=== PATIENT | male | born 1950 | race Asian ===

== ENCOUNTER 2024-07-14 13:28 | Inpatient (IN) | payer OTHER ==
[~2024-07-14] VITALS: Ht 165.1 cm; Wt 62.3 kg
[2024-07-14] MEDS: AZITHROMYCIN 500 MG in NS 250 ML IV SCH (00:50)
[2024-07-14 13:38] VITALS: BP_SYST 143; PULSE 95; RESP 18; TEMP 99.2; O2SAT 92
[2024-07-14] MEDS: NACL 0.9% 1,000 ML IV ONE (14:40)
[2024-07-14] MEDS ORDERED: [UNRECOGNIZED DRUG - CODE] PO (14:57)
[2024-07-14] MEDS ORDERED: ATOR20TA64 PO (14:57)
[2024-07-14] MEDS ORDERED: RISP-31 PO (14:57)
[2024-07-14] MEDS ORDERED: MIRT-91 PO (14:57)
[2024-07-14] MEDS ORDERED: DOCU-156 PO (14:57)
[2024-07-14] MEDS ORDERED: MIDO5TAB4 PO (14:57)
[2024-07-14 15:08] LABS: BASOPHILS % (AUTO) 0.3 % (0.0-2.0); EOSINOPHILS % (AUTO) 0.3 % (0.0-4.0); HEMATOCRIT 44.2 % (36-54); HEMOGLOBIN 14.3 g/dL (14.0-18.0); LYMPHOCYTES # (AUTO) 1.4 K/uL (1.0-5.5); LYMPHOCYTES % (AUTO) 11.4 % (20.5-51.5); MEAN CORPUSCULAR HEMOGLOBIN 29 pg (27-31); MEAN CORPUSCULAR HGB CONC 32 % (32-36); MEAN CORPUSCULAR VOLUME 90 fL (79.0-98.0); MONOCYTES # (AUTO) 0.8 K/uL (0.0-1.0); MONOCYTES % (AUTO) 6.1 % (1.7-9.3); NEUTROPHILS # (AUTO) 10.2 K/uL (1.8-7.7); NEUTROPHILS % (AUTO) 81.9 % (40.0-70.0); PLATELET COUNT (AUTO) 318 K/uL (130-430); RED CELL DISTRIBUTION WIDTH 13.8 % (9.0-15.0); WHITE BLOOD COUNT (AUTO) 12.5 K/uL (4.8-10.8)
[2024-07-14] MEDS: PIPERACILLIN/TAZO 3.375 GM in NS 50 ML IV ONE (15:15)
[2024-07-14 16:03] LABS: ALANINE AMINOTRANSFERASE 13 U/L (12-78); ALBUMIN 2.9 g/dL (3.4-4.8); ANION GAP 14 (5-15); ASPARTATE AMINOTRANSFERASE 14 U/L (10-37); BILIRUBIN,DIRECT 0.4 mg/dL (0.0-0.3); CALCIUM 9.6 mg/dL (8.4-11.0); CARBON DIOXIDE 23 mmol/L (23-29); CHLORIDE 111 mmol/L (98-107); CREATININE 0.83 mg/dL (0.55-1.30); GLUCOSE 112 mg/dL (74-106); POTASSIUM 3.5 mmol/L (3.5-5.1); SODIUM SERUM 148 mmol/L (136-145); TOTAL BILIRUBIN 1.6 mg/dL (0.0-1.0); TOTAL PROTEIN, SERUM 7.8 g/dL (6.4-8.3); UREA NITROGEN, BLOOD 28 mg/dL (8-21)
[2024-07-14 16:14] LABS: BILIRUBIN,URINE 1+ (NEGATIVE); BLOOD, URINE 2+ (NEGATIVE); CLARITY/URINE CLEAR (CLEAR); COLOR,URINE YELLOW (YELLOW); GLUCOSE,URINE NEGATIVE (NEGATIVE); KETONES,URINE 2+ (NEGATIVE); LEUKOCYTE ESTERASE ,URINE NEGATIVE (NEGATIVE); NITRITE, URINE NEGATIVE (NEGATIVE); PROTEIN URINE 1+ (NEGATIVE)
[2024-07-14 16:38] LABS: BACTERIA,URINE RARE /HPF (None Seen); WBC,URINE 0-3 /HPF (0-3)
[2024-07-14 16:55] LABS: INR 1.1 (0.80-1.20); PROTHROMBIN TIME 11.9 SECS (9.5-12.5)
[2024-07-14] MEDS ORDERED: PIPERACILLIN/TAZOBACTAM 3.375 GM/VIAL (ZOSYN) IV ONE (17:25)
[2024-07-14] MEDS ORDERED: NACL 0.9% 1,000 ML IV ONE (18:15)
[2024-07-14] MEDS: FUROSEMIDE 20 MG/2 ML VIAL IVP ONE (18:42)
[2024-07-14] MEDS ORDERED: IBUPROFEN 600 MG TABLET PO PRN (19:00)
[2024-07-14] MEDS ORDERED: NALOXONE HCL 0.4 MG/ML AMP (NARCAN) IVP PRN (19:00)
[2024-07-14] MEDS ORDERED: MORPHINE SULFATE 10 MG/ML VIAL IVP PRN (19:00)
[2024-07-14] MEDS ORDERED: ONDANSETRON HCL 4 MG/2 ML VIAL IVP PRN (19:00)
[2024-07-14 21:05] VITALS: BP_SYST 135; PULSE 95; RESP 20; TEMP 98; O2SAT 98
[2024-07-14] MEDS: PIPERACILLIN/TAZOBACTAM 3.375 GM/VIAL (ZOSYN) IV ONE (22:51)
[2024-07-14] MEDS: AZITHROMYCIN 500 MG/VIAL (ZITHROMAX) IV ONE (22:52)
[2024-07-14] MEDS: PIPERACILLIN/TAZO 3.375 GM in NS 50 ML IV SCH (23:00)
[2024-07-15] VITALS (8 sets, daily range): BP systolic 115–157; PULSE 75–98; RESP 16–20; TEMP 97.1–98; O2SAT 19–100
[2024-07-15 07:46] LABS: EOSINOPHILS % (AUTO) 0.1 % (0.0-4.0); LYMPHOCYTES # (AUTO) 1.1 K/uL (1.0-5.5); LYMPHOCYTES % (AUTO) 6.8 % (20.5-51.5)
[2024-07-15 07:50] LABS: ALANINE AMINOTRANSFERASE 11 U/L (12-78); ALBUMIN 2.9 g/dL (3.4-4.8); ANION GAP 11 (5-15); ASPARTATE AMINOTRANSFERASE 18 U/L (10-37); CALCIUM 9.9 mg/dL (8.4-11.0); CARBON DIOXIDE 27 mmol/L (23-29); CHLORIDE 111 mmol/L (98-107); CREATININE 0.93 mg/dL (0.55-1.30); GLUCOSE 117 mg/dL (74-106); SODIUM SERUM 149 mmol/L (136-145); TOTAL BILIRUBIN 1.7 mg/dL (0.0-1.0); TOTAL PROTEIN, SERUM 7.9 g/dL (6.4-8.3); UREA NITROGEN, BLOOD 27 mg/dL (8-21)
[2024-07-15 08:03] LABS: BASOPHILS % (AUTO) 0.2 % (0.0-2.0); HEMATOCRIT 43.8 % (36-54); HEMOGLOBIN 14.6 g/dL (14.0-18.0); MEAN CORPUSCULAR HEMOGLOBIN 30 pg (27-31); MEAN CORPUSCULAR HGB CONC 33 % (32-36); MEAN CORPUSCULAR VOLUME 89 fL (79.0-98.0); MONOCYTES # (AUTO) 0.8 K/uL (0.0-1.0); MONOCYTES % (AUTO) 5.2 % (1.7-9.3); NEUTROPHILS # (AUTO) 14.1 K/uL (1.8-7.7); NEUTROPHILS % (AUTO) 87.7 % (40.0-70.0); PLATELET COUNT (AUTO) 319 K/uL (130-430); RED BLOOD CELL COUNT(AUTO) 4.93 MIL/uL (4.2-6.2); RED CELL DISTRIBUTION WIDTH 14.2 % (9.0-15.0)
[2024-07-15] MEDS: risperiDONE 1 MG TABLET (RisperDAL) PO SCH (09:12)
[2024-07-15] MEDS: OXcarbazepine 150 MG TABLET(TRILEPTAL) PO SCH (09:12)
[2024-07-15] MEDS: ATORVASTATIN 20 MG TABLET PO SCH (09:13)
[2024-07-15] MEDS: HEPARIN SODIUM,PORCINE 5,000 UNITS/ML VIAL SUBCUT SCH (09:14)
[2024-07-15] MEDS ORDERED: hydrALAZINE HCL 20 MG/ML VIAL IVP PRN (11:15)
[2024-07-15] MEDS ORDERED: ACETAMINOPHEN 650 MG SUPP.RECT RC PRN (11:15)
[2024-07-15] MEDS: KCL 20 mEq in 100 mL (PREMIX) 200 ML IV SCH (12:22)
[2024-07-15] MEDS: KCL 40mEq in D5/0.45NS 1000 mL 1,000 ML IV SCH (15:21)
[2024-07-15] MEDS: KCL 10 mEq in 50 mL (PREMIX) 50 ML IV ONE (17:16)
[2024-07-15] MEDS: SODIUM CL 3% FOR INHALATION 15 ML VIAL.NEB INH ONE ×3 (19:45)
[2024-07-15] MEDS: ENOXAPARIN SODIUM 30 MG/0.3 ML SYRINGE SUBCUT SCH (20:17)
[2024-07-15] MEDS: PANTOPRAZOLE SODIUM 40 MG/VIAL (PROTONIX) IVP SCH (20:17)
[2024-07-15] MEDS: DOCUSATE SODIUM 100 MG CAPSULE PO SCH (20:18)
[2024-07-15] MEDS: MIRTAZAPINE 15 MG TABLET PO SCH (20:18)
[2024-07-16] VITALS (10 sets, daily range): BP systolic 95–124; PULSE 81–95; RESP 15–20; TEMP 97–98.6; O2SAT 91–100
[2024-07-16 01:45] LABS: INFLUENZA TYPE A Negative (NEGATIVE); INFLUENZA TYPE B NEGATIVE (NEGATIVE)
[2024-07-16] MEDS: IPRATROPIUM/ALBUTEROL SULFATE 3 ML AMPUL.NEB (DUONEB) INH SCH (18:44)
[2024-07-16] MEDS: ACETYLCYSTEINE 20% 4 ML VIAL (RT) INH SCH (18:45)
[2024-07-17] VITALS (9 sets, daily range): BP systolic 114–135; PULSE 78–93; RESP 16–20; TEMP 97.1–97.8; O2SAT 95–98
[2024-07-17] MEDS: SODIUM CL 3% FOR INHALATION 15 ML VIAL.NEB INH ONE (07:30)
[2024-07-17 07:58] LABS: BASOPHILS % (AUTO) 0.5 % (0.0-2.0); EOSINOPHILS # (AUTO) 0.1 K/uL (0.0-0.4); EOSINOPHILS % (AUTO) 1.5 % (0.0-4.0); LYMPHOCYTES # (AUTO) 1.2 K/uL (1.0-5.5); LYMPHOCYTES % (AUTO) 14.5 % (20.5-51.5); MEAN CORPUSCULAR HEMOGLOBIN 30 pg (27-31); MEAN CORPUSCULAR HGB CONC 33 % (32-36); MEAN CORPUSCULAR VOLUME 90 fL (79.0-98.0); MONOCYTES # (AUTO) 0.4 K/uL (0.0-1.0); MONOCYTES % (AUTO) 5.4 % (1.7-9.3); NEUTROPHILS # (AUTO) 6.3 K/uL (1.8-7.7); NEUTROPHILS % (AUTO) 78.1 % (40.0-70.0); PLATELET COUNT (AUTO) 283 K/uL (130-430); RED BLOOD CELL COUNT(AUTO) 4.32 MIL/uL (4.2-6.2); WHITE BLOOD COUNT (AUTO) 8.1 K/uL (4.8-10.8)
[2024-07-17 11:08] LABS: QUANTIFERON TB GOLD Negative (Negative)
[2024-07-17] MEDS ORDERED: *PPN PER PHARMACY XX PRN (14:15)
[2024-07-17 16:18] LABS: ANION GAP 7 (5-15); CALCIUM 9.5 mg/dL (8.4-11.0); CARBON DIOXIDE 28 mmol/L (23-29); CHLORIDE 116 mmol/L (98-107); CREATININE 0.95 mg/dL (0.55-1.30); GLUCOSE 131 mg/dL (74-106); POTASSIUM 3.8 mmol/L (3.5-5.1); SODIUM SERUM 151 mmol/L (136-145); UREA NITROGEN, BLOOD 26 mg/dL (8-21)
[2024-07-18] VITALS (9 sets, daily range): BP systolic 122–139; PULSE 81–89; RESP 16–20; TEMP 96.8–97.3; O2SAT 16–99
[2024-07-18 07:32] LABS: BASOPHILS % (AUTO) 0.5 % (0.0-2.0); EOSINOPHILS # (AUTO) 0.1 K/uL (0.0-0.4); EOSINOPHILS % (AUTO) 1.5 % (0.0-4.0); HEMATOCRIT 40.1 % (36-54); HEMOGLOBIN 13.2 g/dL (14.0-18.0); LYMPHOCYTES # (AUTO) 1.1 K/uL (1.0-5.5); MEAN CORPUSCULAR HEMOGLOBIN 30 pg (27-31); MEAN CORPUSCULAR HGB CONC 33 % (32-36); MEAN CORPUSCULAR VOLUME 91 fL (79.0-98.0); MONOCYTES # (AUTO) 0.4 K/uL (0.0-1.0); MONOCYTES % (AUTO) 5.1 % (1.7-9.3); NEUTROPHILS # (AUTO) 6.2 K/uL (1.8-7.7); NEUTROPHILS % (AUTO) 78.9 % (40.0-70.0); PLATELET COUNT (AUTO) 276 K/uL (130-430); RED BLOOD CELL COUNT(AUTO) 4.42 MIL/uL (4.2-6.2); RED CELL DISTRIBUTION WIDTH 13.9 % (9.0-15.0); WHITE BLOOD COUNT (AUTO) 7.8 K/uL (4.8-10.8)
[2024-07-18 07:46] LABS: ALANINE AMINOTRANSFERASE 10 U/L (12-78); ALBUMIN 2.6 g/dL (3.4-4.8); ANION GAP 9 (5-15); ASPARTATE AMINOTRANSFERASE 14 U/L (10-37); CALCIUM 9.6 mg/dL (8.4-11.0); CARBON DIOXIDE 27 mmol/L (23-29); CHLORIDE 115 mmol/L (98-107); CREATININE 0.88 mg/dL (0.55-1.30); GLUCOSE 117 mg/dL (74-106); PHOSPHORUS 2.5 mg/dL (2.7-4.5); POTASSIUM 3.7 mmol/L (3.5-5.1); SODIUM SERUM 151 mmol/L (136-145); TOTAL BILIRUBIN 1.6 mg/dL (0.0-1.0); TOTAL PROTEIN, SERUM 7.2 g/dL (6.4-8.3); TRIGLYCERIDES 80 mg/dL (30-150); UREA NITROGEN, BLOOD 23 mg/dL (8-21)
[2024-07-18] MEDS ORDERED: *TPN PER PHARMACY XX PRN (16:00)
[2024-07-18] MEDS: FAT EMULSIONS 250 ML IV SCH (23:15)
[2024-07-19] VITALS (11 sets, daily range): BP systolic 94–130; PULSE 71–100; RESP 16–20; TEMP 96.4–98.2; O2SAT 94–99
[2024-07-19 08:21] LABS: BASOPHILS % (AUTO) 0.4 % (0.0-2.0); EOSINOPHILS # (AUTO) 0.1 K/uL (0.0-0.4); EOSINOPHILS % (AUTO) 1.4 % (0.0-4.0); HEMATOCRIT 39.3 % (36-54); HEMOGLOBIN 12.9 g/dL (14.0-18.0); LYMPHOCYTES # (AUTO) 0.7 K/uL (1.0-5.5); LYMPHOCYTES % (AUTO) 7.7 % (20.5-51.5); MEAN CORPUSCULAR HEMOGLOBIN 29 pg (27-31); MEAN CORPUSCULAR HGB CONC 33 % (32-36); MEAN CORPUSCULAR VOLUME 89 fL (79.0-98.0); MONOCYTES # (AUTO) 0.7 K/uL (0.0-1.0); MONOCYTES % (AUTO) 8.1 % (1.7-9.3); NEUTROPHILS # (AUTO) 7.1 K/uL (1.8-7.7); NEUTROPHILS % (AUTO) 82.4 % (40.0-70.0); PLATELET COUNT (AUTO) 210 K/uL (130-430); RED BLOOD CELL COUNT(AUTO) 4.42 MIL/uL (4.2-6.2); RED CELL DISTRIBUTION WIDTH 13.9 % (9.0-15.0); WHITE BLOOD COUNT (AUTO) 8.6 K/uL (4.8-10.8)
[2024-07-19 08:27] LABS: ALANINE AMINOTRANSFERASE 11 U/L (12-78); ALBUMIN 2.6 g/dL (3.4-4.8); ANION GAP 9 (5-15); ASPARTATE AMINOTRANSFERASE 19 U/L (10-37); CALCIUM 9.1 mg/dL (8.4-11.0); CARBON DIOXIDE 26 mmol/L (23-29); CHLORIDE 113 mmol/L (98-107); CREATININE 0.87 mg/dL (0.55-1.30); GLUCOSE 136 mg/dL (74-106); PHOSPHORUS 2.1 mg/dL (2.7-4.5); POTASSIUM 3.9 mmol/L (3.5-5.1); SODIUM SERUM 148 mmol/L (136-145); TOTAL BILIRUBIN 1.4 mg/dL (0.0-1.0); TOTAL PROTEIN, SERUM 6.4 g/dL (6.4-8.3); UREA NITROGEN, BLOOD 23 mg/dL (8-21)
[2024-07-19] MEDS: metroNIDAZOLE 250 mg/NS 50 ML IV SCH (13:35)
[2024-07-20] VITALS (12 sets, daily range): BP systolic 99–114; PULSE 81–97; RESP 16–20; TEMP 96.7–98.2; O2SAT 93–99
[2024-07-20] MEDS: KCL 40mEq in D5/0.45NS 1000 mL 1,000 ML IV SCH ×2 (06:58→21:00)
[2024-07-20 07:53] LABS: BASOPHILS % (AUTO) 0.4 % (0.0-2.0); EOSINOPHILS # (AUTO) 0.3 K/uL (0.0-0.4); EOSINOPHILS % (AUTO) 3.5 % (0.0-4.0); HEMATOCRIT 37.2 % (36-54); HEMOGLOBIN 12.3 g/dL (14.0-18.0); LYMPHOCYTES # (AUTO) 1.1 K/uL (1.0-5.5); MEAN CORPUSCULAR HEMOGLOBIN 29 pg (27-31); MEAN CORPUSCULAR HGB CONC 33 % (32-36); MEAN CORPUSCULAR VOLUME 89 fL (79.0-98.0); MONOCYTES # (AUTO) 0.5 K/uL (0.0-1.0); MONOCYTES % (AUTO) 6.5 % (1.7-9.3); NEUTROPHILS % (AUTO) 75.6 % (40.0-70.0); PLATELET COUNT (AUTO) 207 K/uL (130-430); RED BLOOD CELL COUNT(AUTO) 4.19 MIL/uL (4.2-6.2); RED CELL DISTRIBUTION WIDTH 13.8 % (9.0-15.0); WHITE BLOOD COUNT (AUTO) 7.9 K/uL (4.8-10.8)
[2024-07-20 08:12] LABS: ALBUMIN 2.5 g/dL (3.4-4.8); ANION GAP 7 (5-15); ASPARTATE AMINOTRANSFERASE 16 U/L (10-37); CALCIUM 9.2 mg/dL (8.4-11.0); CARBON DIOXIDE 28 mmol/L (23-29); CHLORIDE 109 mmol/L (98-107); CREATININE 0.77 mg/dL (0.55-1.30); GLUCOSE 134 mg/dL (74-106); PHOSPHORUS 2.1 mg/dL (2.7-4.5); POTASSIUM 4.2 mmol/L (3.5-5.1); SODIUM SERUM 144 mmol/L (136-145); TOTAL BILIRUBIN 0.7 mg/dL (0.0-1.0); TOTAL PROTEIN, SERUM 6.6 g/dL (6.4-8.3); UREA NITROGEN, BLOOD 20 mg/dL (8-21)
[2024-07-20 08:22] LABS: ALANINE AMINOTRANSFERASE 9 U/L (12-78)
[2024-07-20] MEDS ORDERED: KCL 40mEq in D5/0.45NS 1000 mL 1,000 ML IV SCH (11:15)
[2024-07-21] VITALS (10 sets, daily range): BP systolic 92–119; PULSE 81–104; RESP 16–20; TEMP 96.5–97.8; O2SAT 95–100
[2024-07-21] MEDS: CEFAZOLIN 1 GM IVPB PREMIX 50 ML IV ONE ×2 (04:45→09:56)
[2024-07-21] MEDS: MEPERIDINE 100 MG INJ. 100 MG/ML VIAL ONE (08:11)
[2024-07-21] MEDS: MIDAZOLAM HCL 5 MG/5 ML VIAL ONE (08:12)
[2024-07-21] MEDS: SIMETHICONE 40 MG/0.6 ML ML ONE (08:12)
[2024-07-21 08:14] LABS: BASOPHILS % (AUTO) 0.3 % (0.0-2.0); EOSINOPHILS # (AUTO) 0.2 K/uL (0.0-0.4); EOSINOPHILS % (AUTO) 1.8 % (0.0-4.0); HEMATOCRIT 38.9 % (36-54); HEMOGLOBIN 12.7 g/dL (14.0-18.0); LYMPHOCYTES # (AUTO) 1.2 K/uL (1.0-5.5); LYMPHOCYTES % (AUTO) 12.9 % (20.5-51.5); MEAN CORPUSCULAR HEMOGLOBIN 29 pg (27-31); MEAN CORPUSCULAR HGB CONC 33 % (32-36); MEAN CORPUSCULAR VOLUME 89 fL (79.0-98.0); MONOCYTES # (AUTO) 0.6 K/uL (0.0-1.0); MONOCYTES % (AUTO) 6.1 % (1.7-9.3); NEUTROPHILS # (AUTO) 7.4 K/uL (1.8-7.7); NEUTROPHILS % (AUTO) 78.9 % (40.0-70.0); PLATELET COUNT (AUTO) 196 K/uL (130-430); RED BLOOD CELL COUNT(AUTO) 4.35 MIL/uL (4.2-6.2); RED CELL DISTRIBUTION WIDTH 13.9 % (9.0-15.0); WHITE BLOOD COUNT (AUTO) 9.4 K/uL (4.8-10.8)
[2024-07-21 08:37] LABS: ALANINE AMINOTRANSFERASE 13 U/L (12-78); ALBUMIN 2.5 g/dL (3.4-4.8); ANION GAP 6 (5-15); ASPARTATE AMINOTRANSFERASE 19 U/L (10-37); CALCIUM 8.9 mg/dL (8.4-11.0); CARBON DIOXIDE 27 mmol/L (23-29); CHLORIDE 105 mmol/L (98-107); CREATININE 0.86 mg/dL (0.55-1.30); GLUCOSE 111 mg/dL (74-106); PHOSPHORUS 2.3 mg/dL (2.7-4.5); POTASSIUM 4.1 mmol/L (3.5-5.1); SODIUM SERUM 138 mmol/L (136-145); TOTAL BILIRUBIN 0.6 mg/dL (0.0-1.0); TOTAL PROTEIN, SERUM 6.8 g/dL (6.4-8.3); UREA NITROGEN, BLOOD 18 mg/dL (8-21)
[2024-07-21 08:52] LABS: INR 1.1 (0.80-1.20)
[2024-07-21] MEDS: fentaNYL CITRATE/PF 100 MCG/2 ML AMP ONE (10:36)
[2024-07-22] VITALS (10 sets, daily range): BP systolic 97–132; PULSE 71–100; RESP 16–20; TEMP 96.5–98.1; O2SAT 93–100
[2024-07-22 07:48] LABS: BASOPHILS % (AUTO) 0.4 % (0.0-2.0); EOSINOPHILS # (AUTO) 0.1 K/uL (0.0-0.4); HEMATOCRIT 38.1 % (36-54); HEMOGLOBIN 12.6 g/dL (14.0-18.0); LYMPHOCYTES # (AUTO) 1.2 K/uL (1.0-5.5); LYMPHOCYTES % (AUTO) 10.8 % (20.5-51.5); MEAN CORPUSCULAR HEMOGLOBIN 30 pg (27-31); MEAN CORPUSCULAR HGB CONC 33 % (32-36); MEAN CORPUSCULAR VOLUME 89 fL (79.0-98.0); MONOCYTES # (AUTO) 0.6 K/uL (0.0-1.0); MONOCYTES % (AUTO) 5.6 % (1.7-9.3); NEUTROPHILS # (AUTO) 8.8 K/uL (1.8-7.7); NEUTROPHILS % (AUTO) 82.2 % (40.0-70.0); PLATELET COUNT (AUTO) 191 K/uL (130-430); RED BLOOD CELL COUNT(AUTO) 4.26 MIL/uL (4.2-6.2); RED CELL DISTRIBUTION WIDTH 13.9 % (9.0-15.0); WHITE BLOOD COUNT (AUTO) 10.7 K/uL (4.8-10.8)
[2024-07-22 08:08] LABS: ALANINE AMINOTRANSFERASE 12 U/L (12-78); ALBUMIN 2.4 g/dL (3.4-4.8); ANION GAP 6 (5-15); ASPARTATE AMINOTRANSFERASE 15 U/L (10-37); CALCIUM 9.2 mg/dL (8.4-11.0); CARBON DIOXIDE 27 mmol/L (23-29); CHLORIDE 106 mmol/L (98-107); GLUCOSE 131 mg/dL (74-106); PHOSPHORUS 2.6 mg/dL (2.7-4.5); POTASSIUM 4.4 mmol/L (3.5-5.1); SODIUM SERUM 139 mmol/L (136-145); TOTAL BILIRUBIN 0.7 mg/dL (0.0-1.0); TOTAL PROTEIN, SERUM 6.6 g/dL (6.4-8.3); UREA NITROGEN, BLOOD 14 mg/dL (8-21)
[2024-07-22] MEDS: COMMUNICATION ORDER XX ONE (16:15)
[2024-07-23] VITALS (10 sets, daily range): BP systolic 102–121; PULSE 60–93; RESP 14–20; TEMP 97.8–98.7; O2SAT 93–100
[2024-07-23] MEDS: IPRATROPIUM/ALBUTEROL SULFATE 3 ML AMPUL.NEB (DUONEB) ONE (01:14)
[2024-07-23 09:07] LABS: BASOPHILS % (AUTO) 0.3 % (0.0-2.0); EOSINOPHILS # (AUTO) 0.1 K/uL (0.0-0.4); EOSINOPHILS % (AUTO) 1.1 % (0.0-4.0); HEMATOCRIT 38.3 % (36-54); HEMOGLOBIN 12.6 g/dL (14.0-18.0); LYMPHOCYTES # (AUTO) 1.5 K/uL (1.0-5.5); LYMPHOCYTES % (AUTO) 16.2 % (20.5-51.5); MEAN CORPUSCULAR HEMOGLOBIN 29 pg (27-31); MEAN CORPUSCULAR HGB CONC 33 % (32-36); MEAN CORPUSCULAR VOLUME 90 fL (79.0-98.0); MONOCYTES # (AUTO) 0.7 K/uL (0.0-1.0); MONOCYTES % (AUTO) 7.6 % (1.7-9.3); NEUTROPHILS % (AUTO) 74.8 % (40.0-70.0); PLATELET COUNT (AUTO) 185 K/uL (130-430); RED BLOOD CELL COUNT(AUTO) 4.27 MIL/uL (4.2-6.2); RED CELL DISTRIBUTION WIDTH 13.9 % (9.0-15.0); WHITE BLOOD COUNT (AUTO) 9.3 K/uL (4.8-10.8)
[2024-07-23 09:33] LABS: ALANINE AMINOTRANSFERASE 13 U/L (12-78); ALBUMIN 2.3 g/dL (3.4-4.8); ANION GAP 8 (5-15); ASPARTATE AMINOTRANSFERASE 20 U/L (10-37); CALCIUM 9.3 mg/dL (8.4-11.0); CARBON DIOXIDE 25 mmol/L (23-29); CHLORIDE 105 mmol/L (98-107); CREATININE 0.76 mg/dL (0.55-1.30); GLUCOSE 114 mg/dL (74-106); PHOSPHORUS 2.3 mg/dL (2.7-4.5); POTASSIUM 4.3 mmol/L (3.5-5.1); SODIUM SERUM 138 mmol/L (136-145); TOTAL BILIRUBIN 0.9 mg/dL (0.0-1.0); TOTAL PROTEIN, SERUM 6.5 g/dL (6.4-8.3); UREA NITROGEN, BLOOD 13 mg/dL (8-21)
[2024-07-23] MEDS ORDERED: KCL 20 mEq in D5/0.45NS 1000mL 1,000 ML IV SCH (12:30)
[2024-07-23] MEDS: D5/0.45 NS 1,000 ML IV SCH (12:45)
[2024-07-23] MEDS ORDERED: MIDAZOLAM HCL 2 MG/2 ML VIAL (VERSED) ONE (12:56)
[2024-07-23] MEDS ORDERED: fentaNYL CITRATE/PF 100 MCG/2 ML AMP ONE (12:57)
[2024-07-23] MEDS: IPRATROPIUM/ALBUTEROL SULFATE 3 ML AMPUL.NEB (DUONEB) INH SCH (13:00)
[2024-07-23] MEDS ORDERED: LIDOCAINE 1%, 20 ML MDV 20 ML ONE (13:29)
[2024-07-24] VITALS (10 sets, daily range): BP systolic 99–109; PULSE 79–86; RESP 16; TEMP 96.2–97.9; O2SAT 93–100
[2024-07-24 11:00] LABS: BASOPHILS % (AUTO) 0.6 % (0.0-2.0); EOSINOPHILS # (AUTO) 0.1 K/uL (0.0-0.4); EOSINOPHILS % (AUTO) 1.2 % (0.0-4.0); HEMATOCRIT 38.4 % (36-54); HEMOGLOBIN 12.8 g/dL (14.0-18.0); LYMPHOCYTES # (AUTO) 1.5 K/uL (1.0-5.5); LYMPHOCYTES % (AUTO) 19.5 % (20.5-51.5); MEAN CORPUSCULAR HEMOGLOBIN 30 pg (27-31); MEAN CORPUSCULAR HGB CONC 33 % (32-36); MEAN CORPUSCULAR VOLUME 89 fL (79.0-98.0); MONOCYTES # (AUTO) 0.6 K/uL (0.0-1.0); MONOCYTES % (AUTO) 7.6 % (1.7-9.3); NEUTROPHILS # (AUTO) 5.5 K/uL (1.8-7.7); NEUTROPHILS % (AUTO) 71.1 % (40.0-70.0); PLATELET COUNT (AUTO) 194 K/uL (130-430); RED CELL DISTRIBUTION WIDTH 14.3 % (9.0-15.0); WHITE BLOOD COUNT (AUTO) 7.8 K/uL (4.8-10.8)
[2024-07-24 11:14] LABS: ALANINE AMINOTRANSFERASE 12 U/L (12-78); ALBUMIN 2.3 g/dL (3.4-4.8); ANION GAP 7 (5-15); ASPARTATE AMINOTRANSFERASE 19 U/L (10-37); CALCIUM 9.6 mg/dL (8.4-11.0); CARBON DIOXIDE 26 mmol/L (23-29); CHLORIDE 104 mmol/L (98-107); GLUCOSE 104 mg/dL (74-106); PHOSPHORUS 2.7 mg/dL (2.7-4.5); POTASSIUM 4.2 mmol/L (3.5-5.1); SODIUM SERUM 137 mmol/L (136-145); TOTAL PROTEIN, SERUM 6.6 g/dL (6.4-8.3); UREA NITROGEN, BLOOD 12 mg/dL (8-21)
== END 2024-07-24 21:11 | DRG 177 ==
LOC: SED 13:28 → SMU 17:23 → STU 21:05
PROVIDERS: ADMIT Family Medicine; ATTEND Family Medicine
PROC: 05HY33Z Insertion of Infusion Device into Upper Vein, Percutaneous Approach (ICD-10-PCS; 2024-07-18)
PROC: B54MZZA Ultrasonography of Right Upper Extremity Veins, Guidance (ICD-10-PCS; 2024-07-18)
PROC: 0DH63UZ Insertion of Feeding Device into Stomach, Percutaneous Approach (ICD-10-PCS; principal; 2024-07-21 10:45)
PROC: 0BJKXZZ Inspection of Right Lung, External Approach (ICD-10-PCS; 2024-07-23)
PROC: 0W993ZZ Drainage of Right Pleural Cavity, Percutaneous Approach (ICD-10-PCS; 2024-07-24)
DX: J69.0 Pneumonitis due to inhalation of food and vomit (principal); J96.90 Respiratory failure, unspecified, unspecified whether with hypoxia or hypercapnia; I42.9 Cardiomyopathy, unspecified; R62.7 Adult failure to thrive; I11.0 Hypertensive heart disease with heart failure; I50.9 Heart failure, unspecified; F03.90 Unspecified dementia, unspecified severity, without behavioral disturbance, psychotic disturbance, mood disturbance, and anxiety; Z86.73 Personal history of transient ischemic attack (TIA), and cerebral infarction without residual deficits; Z87.01 Personal history of pneumonia (recurrent); Z87.891 Personal history of nicotine dependence; Z79.899 Other long term (current) drug therapy; Z68.22 Body mass index [BMI] 22.0-22.9, adult; R91.8 Other nonspecific abnormal finding of lung field
CPT/HCPCS: 32555; 36415; 43246; 70450-TC; 71045; 71250-TC; 80048; 80053; 80076; 81000; 81001; 81015; 83605; 83735; 83880; 84100; 84478; 84484; 85025; 85610; 85651; 85730; 86480; 86635; 87040; 87081; 87086; 87116; 87305; 87899; 88108; 92610-GN; 93005; 93306; 94070; 94640; 94760; 97112-GP; 99285; G0378; J0456; J0690; J0696; J1644; J1650; J1940; J2001; J2175; J2250; J2470; J2543; J3010; J3475; J3480; J3490; J7030; J7050; J7060; J7131; J7608

== ENCOUNTER 2024-09-18 17:56 | Inpatient (IN) | payer OTHER, MEDICAID ==
[~2024-09-18] VITALS: Ht 172.7 cm; Wt 59.9 kg
[~2024-09-18 17:56] MED LIST: ATOR20TA64 PO; DOCU-156 PO; MIDO5TAB4 PO; MIRT-91 PO; RISP-31 PO; [UNRECOGNIZED DRUG - CODE] PO
[2024-09-18 18:40] VITALS: BP_SYST 110; PULSE 80; RESP 22; TEMP 97.5; O2SAT 100
[2024-09-18 19:25] LABS: HEMATOCRIT 35.1 % (36-54); HEMOGLOBIN 11.7 g/dL (14.0-18.0); MEAN CORPUSCULAR VOLUME 90 fL (79.0-98.0); RED BLOOD CELL COUNT(AUTO) 3.92 MIL/uL (4.2-6.2)
[2024-09-18 19:34] LABS: BASOPHILS % (AUTO) 0.1 % (0.0-2.0); EOSINOPHILS % (AUTO) 0.1 % (0.0-4.0); LYMPHOCYTES # (AUTO) 0.7 K/uL (1.0-5.5); LYMPHOCYTES % (AUTO) 5.5 % (20.5-51.5); MEAN CORPUSCULAR HEMOGLOBIN 30 pg (27-31); MEAN CORPUSCULAR HGB CONC 33 % (32-36); MONOCYTES # (AUTO) 1.3 K/uL (0.0-1.0); MONOCYTES % (AUTO) 10.3 % (1.7-9.3); NEUTROPHILS # (AUTO) 10.7 K/uL (1.8-7.7); PLATELET COUNT (AUTO) 234 K/uL (130-430); WHITE BLOOD COUNT (AUTO) 12.8 K/uL (4.8-10.8)
[2024-09-18 19:43] LABS: ANION GAP -1 (5-15); CALCIUM 9.2 mg/dL (8.4-11.0); CARBON DIOXIDE 35 mmol/L (23-29); CHLORIDE 98 mmol/L (98-107); CREATINE KINASE, TOTAL 96 U/L (39-308); CREATININE 1.03 mg/dL (0.55-1.30); GLUCOSE 120 mg/dL (74-106); LACTATE DEHYDROGENASE 250 U/L (85-227); POTASSIUM 5.3 mmol/L (3.5-5.1); SODIUM SERUM 132 mmol/L (136-145); UREA NITROGEN, BLOOD 37 mg/dL (8-21)
[2024-09-18 20:55] LABS: COVID19 ANTIGEN SOFIA FIA NEGATIVE (NEGATIVE)
[2024-09-18 20:57] LABS: INFLUENZA TYPE A Negative (NEGATIVE); INFLUENZA TYPE B NEGATIVE (NEGATIVE)
[2024-09-18] MEDS ORDERED: ONDANSETRON 4 MG ODT TAB GT PRN (21:30)
[2024-09-18] MEDS ORDERED: hydrALAZINE HCL 10 MG TABLET PO PRN (21:30)
[2024-09-18] MEDS: PIPERACILLIN/TAZO 3.375 GM in D5W 50 ML IV SCH (22:13)
[2024-09-18] MEDS ORDERED: PIPERACILLIN/TAZOBACTAM 3.375 GM/VIAL (ZOSYN) IV ONE (22:14)
[2024-09-18] MEDS: NACL 0.9% 1,000 ML IV SCH (22:14)
[2024-09-18] MEDS: IPRATROPIUM/ALBUTEROL SULFATE 3 ML AMPUL.NEB (DUONEB) INH ONE (23:02)
[2024-09-19] VITALS (11 sets, daily range): BP systolic 106–149; PULSE 68–87; RESP 14–19; TEMP 96.9–97.6; O2SAT 3–100
[2024-09-19] MEDS: PIPERACILLIN/TAZOBACTAM 3.375 GM/VIAL (ZOSYN) IV ONE (01:31)
[2024-09-19] MEDS: VANCOMYCIN HCL 1.25 GM/NS 250 ML IV ONE ×2 (01:31→02:07)
[2024-09-19] MEDS: IPRATROPIUM/ALBUTEROL SULFATE 3 ML AMPUL.NEB (DUONEB) INH SCH (07:42)
[2024-09-19] MEDS ORDERED: LevALBUTEROL HCL 1.25 MG/0.5 ML *CONC.* VIAL.NEB (XOPENEX CONC.) INH PRN (09:00)
[2024-09-19] MEDS: OXcarbazepine 150 MG TABLET(TRILEPTAL) PO SCH (09:00)
[2024-09-19] MEDS: MIDODRINE HCL 5 MG TABLET (PROAMATINE) PO SCH ×2 (09:00→09:45)
[2024-09-19] MEDS: LANSOPRAZOLE 30 MG CAPSULE.DR GT SCH (09:45)
[2024-09-19] MEDS: DOCUSATE SODIUM 100 MG/10 ML UDC GT SCH (09:45)
[2024-09-19] MEDS ORDERED: IPRATROPIUM/ALBUTEROL SULFATE 3 ML AMPUL.NEB (DUONEB) INH PRN (11:00)
[2024-09-19] MEDS: PIPERACILLIN/TAZO 3.375 GM in D5W 50 ML IV SCH (13:24)
[2024-09-19] MEDS: LevALBUTEROL HCL 1.25 MG/0.5 ML *CONC.* VIAL.NEB (XOPENEX CONC.) INH SCH (13:26)
[2024-09-19] MEDS: FUROSEMIDE 20 MG/2 ML VIAL IVP ONE (13:32)
[2024-09-19] MEDS: MENTHOL/ZINC OXIDE 113 GM OINT. TP SCH (13:32)
[2024-09-19] MEDS: MIRTAZAPINE 15 MG TABLET PO SCH (21:55)
[2024-09-19] MEDS: risperiDONE 1 MG TABLET (RisperDAL) PO SCH (21:55)
[2024-09-19] MEDS: DOCUSATE SODIUM 100 MG CAPSULE PO SCH (21:55)
[2024-09-19] MEDS: VANCOMYCIN HCL 500 MG in NS 100 ML IV SCH (21:55)
[2024-09-19] MEDS: ENOXAPARIN SODIUM 40 MG/0.4 ML SYRINGE SUBCUT SCH (21:56)
[2024-09-20] VITALS (9 sets, daily range): BP systolic 100–117; PULSE 80–92; RESP 16–18; TEMP 96.8–98.1; O2SAT 92–100
[2024-09-20 08:58] LABS: ANION GAP 2 (5-15); CALCIUM 9.1 mg/dL (8.4-11.0); CARBON DIOXIDE 34 mmol/L (23-29); CHLORIDE 104 mmol/L (98-107); CREATININE 0.74 mg/dL (0.55-1.30); GLUCOSE 92 mg/dL (74-106); SODIUM SERUM 140 mmol/L (136-145); UREA NITROGEN, BLOOD 24 mg/dL (8-21)
[2024-09-20 08:58] LABS: BASOPHILS % (AUTO) 0.2 % (0.0-2.0); EOSINOPHILS # (AUTO) 0.2 K/uL (0.0-0.4); EOSINOPHILS % (AUTO) 2.2 % (0.0-4.0); HEMATOCRIT 35.8 % (36-54); HEMOGLOBIN 11.4 g/dL (14.0-18.0); LYMPHOCYTES # (AUTO) 0.4 K/uL (1.0-5.5); LYMPHOCYTES % (AUTO) 4.5 % (20.5-51.5); MEAN CORPUSCULAR HEMOGLOBIN 29 pg (27-31); MEAN CORPUSCULAR HGB CONC 32 % (32-36); MEAN CORPUSCULAR VOLUME 91 fL (79.0-98.0); MONOCYTES # (AUTO) 0.6 K/uL (0.0-1.0); MONOCYTES % (AUTO) 7.8 % (1.7-9.3); NEUTROPHILS # (AUTO) 6.9 K/uL (1.8-7.7); NEUTROPHILS % (AUTO) 85.3 % (40.0-70.0); PLATELET COUNT (AUTO) 239 K/uL (130-430); RED BLOOD CELL COUNT(AUTO) 3.93 MIL/uL (4.2-6.2); RED CELL DISTRIBUTION WIDTH 16.9 % (9.0-15.0); WHITE BLOOD COUNT (AUTO) 8.1 K/uL (4.8-10.8)
[2024-09-20 09:11] LABS: POTASSIUM 4.5 mmol/L (3.5-5.1)
[2024-09-20] MEDS: ATORVASTATIN 20 MG TABLET PO SCH (09:58)
[2024-09-20] MEDS: FUROSEMIDE 20 MG/2 ML VIAL IVP SCH (09:59)
[2024-09-21] VITALS (11 sets, daily range): BP systolic 123–133; PULSE 94–112; RESP 16–22; TEMP 96.5–97.7; O2SAT 94–98
[2024-09-21] MEDS: IPRATROPIUM/ALBUTEROL SULFATE 3 ML AMPUL.NEB (DUONEB) INH SCH (20:43)
[2024-09-21] MEDS: ACETYLCYSTEINE 20% 4 ML VIAL (RT) INH SCH (20:44)
[2024-09-22] VITALS (14 sets, daily range): BP systolic 98–128; PULSE 72–102; RESP 17–19; TEMP 97.2–98; O2SAT 93–100
[2024-09-22 07:19] LABS: BASOPHILS % (AUTO) 0.5 % (0.0-2.0); EOSINOPHILS # (AUTO) 0.3 K/uL (0.0-0.4); EOSINOPHILS % (AUTO) 3.3 % (0.0-4.0); HEMATOCRIT 40.6 % (36-54); HEMOGLOBIN 13.1 g/dL (14.0-18.0); LYMPHOCYTES # (AUTO) 0.3 K/uL (1.0-5.5); LYMPHOCYTES % (AUTO) 3.1 % (20.5-51.5); MEAN CORPUSCULAR HEMOGLOBIN 29 pg (27-31); MEAN CORPUSCULAR HGB CONC 32 % (32-36); MEAN CORPUSCULAR VOLUME 90 fL (79.0-98.0); MONOCYTES # (AUTO) 0.4 K/uL (0.0-1.0); MONOCYTES % (AUTO) 5.2 % (1.7-9.3); NEUTROPHILS # (AUTO) 7.5 K/uL (1.8-7.7); NEUTROPHILS % (AUTO) 87.9 % (40.0-70.0); PLATELET COUNT (AUTO) 268 K/uL (130-430); RED BLOOD CELL COUNT(AUTO) 4.49 MIL/uL (4.2-6.2); RED CELL DISTRIBUTION WIDTH 16.8 % (9.0-15.0); WHITE BLOOD COUNT (AUTO) 8.6 K/uL (4.8-10.8)
[2024-09-22 07:34] LABS: CALCIUM 9.1 mg/dL (8.4-11.0); CHLORIDE 101 mmol/L (98-107); CREATININE 0.75 mg/dL (0.55-1.30); GLUCOSE 146 mg/dL (74-106); POTASSIUM 3.3 mmol/L (3.5-5.1); SODIUM SERUM 137 mmol/L (136-145); UREA NITROGEN, BLOOD 17 mg/dL (8-21)
[2024-09-22 07:37] LABS: ANION GAP 0 (5-15); CARBON DIOXIDE 44 mmol/L (23-29)
[2024-09-22] MEDS: POTASSIUM CHLORIDE 20 MEQ/PKT PACKET GT ONE (18:23)
[2024-09-23] VITALS (11 sets, daily range): BP systolic 103–113; PULSE 105–115; RESP 19–20; TEMP 97.5–98.1; O2SAT 92–100
[2024-09-23 07:25] LABS: ALANINE AMINOTRANSFERASE 63 U/L (12-78); ALBUMIN 2.4 g/dL (3.4-4.8); ANION GAP 2 (5-15); ASPARTATE AMINOTRANSFERASE 31 U/L (10-37); CALCIUM 9.2 mg/dL (8.4-11.0); CHLORIDE 101 mmol/L (98-107); CREATININE 0.68 mg/dL (0.55-1.30); GLUCOSE 144 mg/dL (74-106); SODIUM SERUM 143 mmol/L (136-145); TOTAL BILIRUBIN 0.9 mg/dL (0.0-1.0); TOTAL PROTEIN, SERUM 6.7 g/dL (6.4-8.3); UREA NITROGEN, BLOOD 20 mg/dL (8-21)
[2024-09-23 07:28] LABS: CARBON DIOXIDE 40 mmol/L (23-29)
[2024-09-23] MEDS: FUROSEMIDE 20 MG/2 ML VIAL IVP ONE (11:30)
[2024-09-23] MEDS: DOCUSATE SODIUM 100 MG/10 ML UDC GT SCH (22:22)
[2024-09-24] VITALS (12 sets, daily range): BP systolic 94–117; PULSE 59–110; RESP 16–20; TEMP 96.9–97.5; O2SAT 85–99
[2024-09-25] VITALS (8 sets, daily range): BP systolic 99–104; PULSE 95–105; RESP 16–20; TEMP 96.5–99.1; O2SAT 94–99
== END 2024-09-25 13:00 | DRG 871 ==
LOC: SED 17:56 → STU 20:57 → SMU 09-20 18:06
PROVIDERS: ADMIT Family Medicine; ATTEND Family Medicine
DX: A41.9 Sepsis, unspecified organism (principal); I50.23 Acute on chronic systolic (congestive) heart failure; J69.0 Pneumonitis due to inhalation of food and vomit; J96.01 Acute respiratory failure with hypoxia; J18.9 Pneumonia, unspecified organism; G93.49 Other encephalopathy; J98.11 Atelectasis; Z20.822 Contact with and (suspected) exposure to COVID-19; D64.9 Anemia, unspecified; J44.9 Chronic obstructive pulmonary disease, unspecified; Z86.73 Personal history of transient ischemic attack (TIA), and cerebral infarction without residual deficits; Z93.1 Gastrostomy status; Z79.899 Other long term (current) drug therapy
CPT/HCPCS: 36415; 71045; 80048; 80053; 80202; 82550; 83605; 83615; 83880; 84484; 85025; 87040; 87081; 93005; 94070; 94640; 94668; 94760; 99285; G0378; J1650; J1940; J2543; J3370; J7030; J7060; J7608; J7612